=== PATIENT | male | born 1945 | race Caucasian/White ===

== ENCOUNTER 2018-01-27 16:23 | Inpatient (IN) | payer OTHER, MEDICARE ==
[~2018-01-27] VITALS: Ht 172.7 cm; Wt 48.2 kg
[2018-01-27 16:26] VITALS: BP 121/61; PULSE 122; RESP 17; TEMP 98.4; O2SAT 97
[2018-01-27] MEDS ORDERED: ADVA100A INH (16:43)
[2018-01-27] MEDS ORDERED: VENTAER INH (16:43)
[2018-01-27] MEDS ORDERED: ATEN50TA PO (16:52)
[2018-01-27] MEDS ORDERED: SIMV10TA PO (16:52)
[2018-01-27] MEDS ORDERED: SODIUM CHLOR 0.9% 1000 ML INJ 1,000 ML IV SCH (16:54)
[2018-01-27] MEDS ORDERED: SODIUM CHLORIDE 0.9% FLUSH 10 ML FLUSH IV FLUSH PRN ×2 (17:00→20:15)
--- NOTE | 2018-01-27 17:01 | PD ---
HPI Chief Complaint: GI Complaint Time Seen by Provider: 16:35 Travel History International Travel<30 days: No Contact w/Intl Traveler<30days: No Traveled to known affect area: No History of Present Illness HPI 72-year-old male with PMH of COPD presents to the ED for evaluation of a few weeks history of watery diarrhea. Onset a few days after the patient was discharged from the hospital and treated with a course of an unknown antibiotic. He denies fevers, chills, nausea, vomiting, abdominal pain. He states that he is mildly anorexic secondary to risk of fecal incontinence. He was seen at the [facility] today where there was concern for dehydration and elevated white count. He was sent to the ED for further evaluation. Patient lives full- time in [place], stays here over the winter. PFSH Past Medical History Cardiac Catheterization: Yes (w/ stent) High Cholesterol: Yes COPD: Yes Hypertension: Yes Myocardial Infarction: Yes (1999) Past Surgical History Appendectomy: Yes Social History Alcohol Use: Yes Tobacco Use: Yes Substance Use: Yes Allergies-Medications (Allergen,Severity, Reaction): Coded Allergies: No Known Allergies (Unverified , 01/27/18) Reported Meds & Prescriptions Reported Meds & Active Scripts Active Reported Simvastatin 10 Mg Tab 10 Mg PO DAILY Atenolol 50 Mg Tab 50 Mg PO DAILY Advair Diskus Inh (Fluticasone-Salmeterol Inh) 100-50 Mcg/Blist Aer 1 Puff INH BID Rinse mouth after use. Ventolin Hfa 18 GM Inh (Albuterol Sulfate) 90 Mcg/Act Aer 1 Puff INH Q4H PRN Review of Systems Except as stated in HPI: all other systems reviewed are Neg Physical Exam Narrative GENERAL: Well-nourished, well-developed patient. SKIN: Focused skin assessment warm/dry. HEAD: Normocephalic. Hearing aids in place bilaterally. EYES: No scleral icterus. No injection or drainage. NECK: Supple, trachea midline. No JVD or lymphadenopathy. CARDIOVASCULAR: Regular rate and rhythm without murmurs, gallops, or rubs. RESPIRATORY: Breath sounds equal bilaterally. No accessory muscle use. GASTROINTESTINAL: Abdomen soft, non-tender, nondistended. Active bowel sounds. MUSCULOSKELETAL: No cyanosis, or edema. BACK: Nontender without obvious deformity. No CVA tenderness. Data Data Last Documented VS Vital Signs Date Time Temp Pulse Resp B/P (MAP) Pulse Ox O2 Delivery O2 Flow Rate FiO2 01/27/18 18:12 101 16 101/56 (71) 97 Room Air 01/27/18 16:26 98.4 Orders Orders Complete Blood Count With Diff (01/27/18 16:54) Comprehensive Metabolic Panel (01/27/18 16:54) Prothrombin Time / Inr (Pt) (01/27/18 16:54) Act Partial Throm Time (Ptt) (01/27/18 16:54) Urinalysis - C+S If Indicated (01/27/18 16:54) Iv Access Insert/Monitor (01/27/18 16:54) Ecg Monitoring (01/27/18 16:54) Oximetry (01/27/18 16:54) Sodium Chlor 0.9% 1000 Ml Inj (Ns 1000 M (01/27/18 16:54) Sodium Chloride 0.9% Flush (Ns Flush) (01/27/18 17:00) Enteric Path (Stool) (01/27/18 16:54) Stool Ova And Parasite Screen (01/27/18 16:54) C Diff Toxin Pcr (01/27/18 16:54) Lactic Acid Sepsis Protocol (01/27/18 17:18) Metronidazole 500 Mg Inj (Flagyl 500 Mg (01/27/18 18:00) Blood Culture (01/27/18 17:51) Isolation 08,20 (01/27/18 17:53) Admit Order (Ed Use Only) (01/27/18 18:30) Labs Laboratory Tests Test 01/27/18 17:00 01/27/18 18:05 White Blood Count 19.5 TH/MM3 Red Blood Count 3.88 MIL/MM3 Hemoglobin 12.8 GM/DL Hematocrit 38.2 % Mean Corpuscular Volume 98.3 FL Mean Corpuscular Hemoglobin 33.0 PG Mean Corpuscular Hemoglobin Concent 33.5 % Red Cell Distribution Width 13.7 % Platelet Count 253 TH/MM3 Mean Platelet Volume 9.1 FL Neutrophils (%) (Auto) 88.2 % Lymphocytes (%) (Auto) 5.1 % Monocytes (%) (Auto) 5.2 % Eosinophils (%) (Auto) 1.3 % Basophils (%) (Auto) 0.2 % Neutrophils # (Auto) 17.2 TH/MM3 Lymphocytes # (Auto) 1.0 TH/MM3 Monocytes # (Auto) 1.0 TH/MM3 Eosinophils # (Auto) 0.2 TH/MM3 Basophils # (Auto) 0.0 TH/MM3 CBC Comment DIFF FINAL Differential Comment Prothrombin Time 11.9 SEC Prothromb Time International Ratio 1.2 RATIO Activated Partial Thromboplast Time 26.8 SEC Blood Urea Nitrogen 6 MG/DL Creatinine 0.75 MG/DL Random Glucose 98 MG/DL Total Protein 5.9 GM/DL Albumin 2.5 GM/DL Calcium Level 8.5 MG/DL Alkaline Phosphatase 74 U/L Aspartate Amino Transf (AST/SGOT) 10 U/L Alanine Aminotransferase (ALT/SGPT) 13 U/L Total Bilirubin 0.4 MG/DL Sodium Level 133 MEQ/L Potassium Level 3.7 MEQ/L Chloride Level 100 MEQ/L Carbon Dioxide Level 26.3 MEQ/L Anion Gap 7 MEQ/L Estimat Glomerular Filtration Rate 102 ML/MIN MDM Medical Decision Making Medical Screen Exam Complete: Yes Emergency Medical Condition: Yes Differential Diagnosis Infectious diarrhea versus dehydration versus metabolic derangement versus other Narrative Course 72-year-old male with PMH of COPD presents to the ED for evaluation of a few weeks history of watery diarrhea. Onset a few days after the patient was discharged from the hospital and treated with a course of an unknown antibiotic. He denies fevers, chills, nausea, vomiting, abdominal pain. The patient states that he was treated for perirectal abscess hospitalized at [facility]. He was discharged on unknown antibiotic. Patient's tachycardic, afebrile on presentation. Abdominal exam is unremarkable. IV was established. Patient was administered 1 L normal saline. CBC: WBC 19.5. Neutrophil predominant. Hemoglobin 12.8. INR 1.2. CMP: BUN 6, creatinine 0.75. Lactic acid 1.3. Stool studies ordered and pending. Given his leukocytosis will cover for C. difficile with Flagyl. I discussed the results of the workup with the patient as well as plan for admission. He is agreeable. Discussed the patient with Dr. Hussein who agrees to accept him to the medicine service. Please see medicine notes for disposition. Brie Gastelum January 27, 2018 17:01
[2018-01-27 17:30] LABS: AUTOMATED NEUTROPHIL # 17.2 TH/MM3 (1.8-7.7); BASOPHIL % 0.2 % (0.0-2.0); EOSINOPHIL # 0.2 TH/MM3 (0-0.4); EOSINOPHIL % 1.3 % (0.0-4.0); HEMATOCRIT 38.2 % (39.0-51.0); HEMOGLOBIN 12.8 GM/DL (13.0-17.0); LYMPH % 5.1 % (9.0-44.0); MEAN CELL VOLUME 98.3 FL (80.0-100.0); MEAN CORPUSCULAR HGB CONC 33.5 % (32.0-36.0); MEAN PLATELET VOLUME 9.1 FL (7.0-11.0); MONO % 5.2 % (0.0-8.0); NEUT % 88.2 % (16.0-70.0); PLATELET COUNT 253 TH/MM3 (150-450); RED BLOOD COUNT 3.88 MIL/MM3 (4.50-5.90); RED CELL DISTRIBUTION WIDTH 13.7 % (11.6-17.2); WHITE BLOOD COUNT 19.5 TH/MM3 (4.0-11.0)
[2018-01-27] MEDS ORDERED: metroNIDAZOLE 500 MG INJ 100 ML IV ONE (18:00)
[2018-01-27 18:12] VITALS: BP 101/56; PULSE 101; RESP 16; O2SAT 97
--- NOTE | 2018-01-27 18:33 | PD ---
Data Data Last Documented VS Vital Signs Date Time Temp Pulse Resp B/P (MAP) Pulse Ox O2 Delivery O2 Flow Rate FiO2 01/27/18 18:12 101 16 101/56 (71) 97 Room Air 01/27/18 16:26 98.4 Orders Orders Complete Blood Count With Diff (01/27/18 16:54) Comprehensive Metabolic Panel (01/27/18 16:54) Prothrombin Time / Inr (Pt) (01/27/18 16:54) Act Partial Throm Time (Ptt) (01/27/18 16:54) Urinalysis - C+S If Indicated (01/27/18 16:54) Iv Access Insert/Monitor (01/27/18 16:54) Ecg Monitoring (01/27/18 16:54) Oximetry (01/27/18 16:54) Sodium Chlor 0.9% 1000 Ml Inj (Ns 1000 M (01/27/18 16:54) Sodium Chloride 0.9% Flush (Ns Flush) (01/27/18 17:00) Enteric Path (Stool) (01/27/18 16:54) Stool Ova And Parasite Screen (01/27/18 16:54) C Diff Toxin Pcr (01/27/18 16:54) Lactic Acid Sepsis Protocol (01/27/18 17:18) Metronidazole 500 Mg Inj (Flagyl 500 Mg (01/27/18 18:00) Blood Culture (01/27/18 17:51) Isolation 08,20 (01/27/18 17:53) Admit Order (Ed Use Only) (01/27/18 18:30) Labs Laboratory Tests Test 01/27/18 17:00 01/27/18 18:05 White Blood Count 19.5 TH/MM3 Red Blood Count 3.88 MIL/MM3 Hemoglobin 12.8 GM/DL Hematocrit 38.2 % Mean Corpuscular Volume 98.3 FL Mean Corpuscular Hemoglobin 33.0 PG Mean Corpuscular Hemoglobin Concent 33.5 % Red Cell Distribution Width 13.7 % Platelet Count 253 TH/MM3 Mean Platelet Volume 9.1 FL Neutrophils (%) (Auto) 88.2 % Lymphocytes (%) (Auto) 5.1 % Monocytes (%) (Auto) 5.2 % Eosinophils (%) (Auto) 1.3 % Basophils (%) (Auto) 0.2 % Neutrophils # (Auto) 17.2 TH/MM3 Lymphocytes # (Auto) 1.0 TH/MM3 Monocytes # (Auto) 1.0 TH/MM3 Eosinophils # (Auto) 0.2 TH/MM3 Basophils # (Auto) 0.0 TH/MM3 CBC Comment DIFF FINAL Differential Comment MDM Supervised Visit with JONES: Yes Narrative Course The history, exam, and medical decision-making in the associated mid-level provider note were completed with my assistance. I reviewed and agree with the findings presented. I attest that I had a [id number] encounter with the patient on the same day, and personally performed and documented my assessment and findings in the medical record. *My assessment and Findings: 72-year-old man, generally well-appearing, little bit dehydrated. Heart rapid heart rate. Here from his primary physician for a week's worth of diarrhea whose stools and watery stools. Benign abdominal exam. Suspect C. difficile started shortly after an inpatient admission with antibiotic exposure. Will check labs, IV fluids, stool studies, admission. Given his high white count will get blood cultures, and empirically cover for C. difficile. Placed on contact isolation. Ross Lara MD January 27, 2018 18:33
[2018-01-27 18:39] LABS: ALBUMIN 2.5 GM/DL (3.4-5.0); ALT (GPT) 13 U/L (12-78); AST (GOT) 10 U/L (15-37); BICARBONATE 26.3 MEQ/L (21.0-32.0); BLOOD UREA NITROGEN 6 MG/DL (7-18); CALCIUM 8.5 MG/DL (8.5-10.1); CHLORIDE 100 MEQ/L (98-107); CREATININE 0.75 MG/DL (0.60-1.30); GLOMERULAR FILTRATION RATE 102 ML/MIN (>89); GLUCOSE,RANDOM 98 MG/DL (74-106); SODIUM (NA) 133 MEQ/L (136-145)
[2018-01-27 18:42] LABS: ALKALINE PHOSPHATASE 74 U/L (45-117); TOTAL BILIRUBIN ADULT 0.4 MG/DL (0.2-1.0); TOTAL PROTEIN 5.9 GM/DL (6.4-8.2)
[2018-01-27 18:49] LABS: INTERNATIONAL NORMALIZED RATIO 1.2 RATIO; PROTHROMBIN TIME - PATIENT 11.9 SEC (9.8-11.6)
[2018-01-27] MEDS ORDERED: SENNOSIDES 8.6 MG TAB PO PRN (20:15)
[2018-01-27] MEDS ORDERED: MAGNESIUM HYDROXIDE SUSP 30 ML CUP PO PRN (20:15)
[2018-01-27] MEDS ORDERED: LACTULOSE SYRUP 20 GM/30 ML CUP PO PRN (20:15)
[2018-01-27] MEDS ORDERED: NALOXONE HCL 0.4 MG/ML AMP IV PUSH PRN (20:15)
[2018-01-27] MEDS ORDERED: ACETAMINOPHEN 325 MG TAB PO PRN (20:15)
[2018-01-27] MEDS ORDERED: ONDANSETRON HCL 4 MG/2 ML VIAL IVP PRN (20:15)
[2018-01-27] MEDS ORDERED: BISACODYL 10 MG SUPP RECTAL PRN (20:15)
[2018-01-27] MEDS ORDERED: RESP: ALBUTEROL 2.5 MG/IPRATROPIUM 0.5 MG NEB (PRN) NEB (20:15)
--- NOTE | 2018-01-27 20:20 | HHI.HP ---
HPI Service [facility] Primary Care Physician [facility] Admission Diagnosis Leukocytosis, rule out infectious diarrhea Diagnoses: Travel History International Travel<30 Days: No Contact w/Intl Traveler <30 Da: No Traveled to Known Affected Are: No History of Present Illness 72-year-old male with a past medical history significant for coronary artery disease, COPD, hypertension and hyperlipidemia presents to the emergency department for the evaluation of diarrhea. On 01/02/18 the patient was treated at [facility] for a perirectal abscess that spontaneously ruptured shortly after admission. The patient was treated with IV antibiotics and remained in the hospital for 4 days. On hospital day #3 the patient was treated with an I&D. He was discharged home on approximately 10 days worth of oral antibiotic. (The patient and his cannot remember the name of any of the antibiotics). For the past 2 weeks, the patient has had severe, copious, watery diarrhea. He reports that is approximately 2-6 times daily despite aggressive treatment with Imodium. He denies any fever/chills. No abdominal pain/cramping. No nausea/vomiting. No chest pain or shortness of breath. No fatigue or weakness. No lateralizing signs/symptoms. Review of Systems Except as stated in HPI: all other systems reviewed are Neg Past Family Social History Past Medical History CAD COPD Hypertension Hyperlipidemia Past Surgical History I&D perirectal abscess on 01/05/18 Cardiac catheterization with stent placement 1 Appendectomy Right cataract surgery Reported Medications Reported Meds & Active Scripts Active Reported Simvastatin 10 Mg Tab 10 Mg PO DAILY Atenolol 50 Mg Tab 50 Mg PO DAILY Advair Diskus Inh (Fluticasone-Salmeterol Inh) 100-50 Mcg/Blist Aer 1 Puff INH BID Rinse mouth after use. Ventolin Hfa 18 GM Inh (Albuterol Sulfate) 90 Mcg/Act Aer 1 Puff INH Q4H PRN Allergies: Coded Allergies: No Known Allergies (Unverified , 01/27/18) Family History Negative for CAD/DM Social History Smokes approximately half a pack per day. Occasional alcohol. Denies illicit drugs. Physical Exam Vital Signs Vital Signs Date Time Temp Pulse Resp B/P (MAP) Pulse Ox O2 Delivery O2 Flow Rate FiO2 01/27/18 19:34 01/27/18 18:12 101 16 101/56 (71) 97 Room Air 01/27/18 16:26 98.4 122 17 121/61 (81) 97 Physical Exam GENERAL: This is a well-nourished, well-developed patient, in no apparent distress. SKIN: No rashes, ecchymoses or lesions. Cool and dry. No signs of infection. HEAD: Atraumatic. Normocephalic. No temporal or scalp tenderness. EYES: Pupils equal round and reactive. Extraocular motions intact. No scleral icterus. No injection or drainage. ENT: Nose without bleeding, purulent drainage or septal hematoma. Throat without erythema, tonsillar hypertrophy or exudate. Uvula midline. Airway patent. NECK: Trachea midline. No JVD or lymphadenopathy. Supple, nontender, no meningeal signs. CARDIOVASCULAR: Regular rate and rhythm without murmurs, gallops, or rubs. RESPIRATORY: Clear to auscultation. Breath sounds equal bilaterally. No wheezes , rales, or rhonchi. GASTROINTESTINAL: Abdomen soft, non-tender, nondistended. No hepato-splenomegaly , or palpable masses. No guarding. MUSCULOSKELETAL: Extremities without clubbing, cyanosis, or edema. No joint tenderness, effusion, or edema noted. No calf tenderness. NEUROLOGICAL: Awake and alert. Cranial nerves II through XII intact. Motor and sensory grossly within normal limits. Normal speech. Laboratory Laboratory Tests Test 01/27/18 17:00 01/27/18 18:05 01/27/18 18:49 White Blood Count 19.5 Red Blood Count 3.88 Hemoglobin 12.8 Hematocrit 38.2 Mean Corpuscular Volume 98.3 Mean Corpuscular Hemoglobin 33.0 Mean Corpuscular Hemoglobin Concent 33.5 Red Cell Distribution Width 13.7 Platelet Count 253 Mean Platelet Volume 9.1 Neutrophils (%) (Auto) 88.2 Lymphocytes (%) (Auto) 5.1 Monocytes (%) (Auto) 5.2 Eosinophils (%) (Auto) 1.3 Basophils (%) (Auto) 0.2 Neutrophils # (Auto) 17.2 Lymphocytes # (Auto) 1.0 Monocytes # (Auto) 1.0 Eosinophils # (Auto) 0.2 Basophils # (Auto) 0.0 CBC Comment DIFF FINAL Differential Comment Prothrombin Time 11.9 Prothromb Time International Ratio 1.2 Activated Partial Thromboplast Time 26.8 Blood Urea Nitrogen 6 Creatinine 0.75 Random Glucose 98 Total Protein 5.9 Albumin 2.5 Calcium Level 8.5 Alkaline Phosphatase 74 Aspartate Amino Transf (AST/SGOT) 10 Alanine Aminotransferase (ALT/SGPT) 13 Total Bilirubin 0.4 Sodium Level 133 Potassium Level 3.7 Chloride Level 100 Carbon Dioxide Level 26.3 Anion Gap 7 Estimat Glomerular Filtration Rate 102 Lactic Acid Level 1.3 Date/Time Source Procedure Growth Status 01/27/18 18:10 Blood Peripheral Aerobic Blood Culture Pending Received 01/27/18 18:10 Blood Peripheral Anaerobic Blood Culture Pending Received Result Diagram: 01/27/18 1700 01/27/18 1805 Caprini VTE Risk Assessment Andreyrini VTE Risk Assessment: Mod/High Risk (score >= 2) Caprini Risk Assessment Model Point Value = 1 Point Value = 2 Point Value = 3 Point Value = 5 Age 41-60 Minor surgery BMI > 25 kg/m2 Swollen legs Varicose veins or History of unexplained or recurrent spontaneous Oral contraceptives or hormone replacement Sepsis (< 1 month) Serious lung disease, including pneumonia (< 1 month) Abnormal pulmonary function Acute myocardial infarction Congestive heart failure (< 1 month) History of inflammatory bowel disease Medical patient at bed rest Age 61-74 Arthroscopic surgery Major open surgery (> 45 min) Laparoscopic surgery (> 45 min) Malignancy Confined to bed (> 72 hours) Immobilizing plaster cast Central venous access Age >= 75 History of VTE Family history of VTE Factor V Leiden Prothrombin [id number] Lupus anticoagulant Anticardiolipin antibodies Elevated serum homocysteine Heparin-induced thrombocytopenia Other congenital or acquired thrombophilia Stroke (< 1 month) Elective arthroplasty Hip, pelvis, or leg fracture Acute spinal cord injury (< 1 month) Prophylaxis Regimen Total Risk Factor Score Risk Level Prophylaxis Regimen 0-1 Low Early ambulation 2 Moderate Order ONE of the following: *Sequential Compression Device (SCD) *Heparin 5000 units SQ BID 3-4 Higher Order ONE of the following medications: *Heparin 5000 units SQ TID *Enoxaparin/Lovenox 40 mg SQ daily (WT < 150 kg, CrCl > 30 mL/min) *Enoxaparin/Lovenox 30 mg SQ daily (WT < 150 kg, CrCl > 10-29 mL/min) *Enoxaparin/Lovenox 30 mg SQ BID (WT < 150 kg, CrCl > 30 mL/min) AND/OR *Sequential Compression Device (SCD) 5 or more Highest Order ONE of the following medications: *Heparin 5000 units SQ TID (Preferred with Epidurals) *Enoxaparin/Lovenox 40 mg SQ daily (WT < 150 kg, CrCl > 30 mL/min) *Enoxaparin/Lovenox 30 mg SQ daily (WT < 150 kg, CrCl > 10-29 mL/min) *Enoxaparin/Lovenox 30 mg SQ BID (WT < 150 kg, CrCl > 30 mL/min) AND *Sequential Compression Device (SCD) Assessment and Plan Assessment and Plan Assessment/plan: 1. Diarrhea/?C. difficile/Sepsis Leukocytosis and tachycardia Patient with recent antibiotic history and water diarrhea 2 weeks Stool studies pending C. difficile pending Blood cultures pending CXR, UA pending Empiric treatment with Flagyl 2. Recent history of perirectal abscess No active signs of infection Continue outpatient care at the [facility] 3. Hypertension/hyperlipidemia/CAD Continue home medication 4. COPD Continue home medications Duo nebs as needed FEN Heart healthy diet Electrolytes: monitor and replete prn Heparin Physician Certification 2 Midnight Certification Type: Admission for Inpatient Services Order for Inpatient Services The services are ordered in accordance with Medicare regulations or non- Medicare payer requirements, as applicable. In the case of services not specified as inpatient-only, they are appropriately provided as inpatient services in accordance with the 2-midnight benchmark. Estimated LOS (days): 2 2 days is the estimated time the patient will need to remain in the hospital, assuming treatment plan goals are met and no additional complications. Post-Hospital Plan: Not yet determined Carole Hoffman MD January 27, 2018 20:20
[2018-01-27] MEDS: DOCUSATE SODIUM 50 MG/SENNA 8.6 MG TAB PO SCH (20:45)
[2018-01-27] MEDS: SODIUM CHLORIDE 0.9% FLUSH 10 ML FLUSH IV FLUSH SCH (20:45)
[2018-01-27] MEDS: HEPARIN SODIUM - SQ 10,000 UNITS/ML VIAL SQ SCH (20:46)
--- NOTE | 2018-01-27 20:50 | RADRPT ---
EXAM DATE/TIME: 01/27/2018 20:32 [facility] COMPARISON: No previous studies available for comparison. INDICATIONS : Short of breath. MEDICAL HISTORY : None. SURGICAL HISTORY : None. ENCOUNTER: Initial ACUITY: 1 day PAIN SCORE: 0/10 LOCATION: Bilateral chest FINDINGS: A single view of the chest demonstrates the lungs to be symmetrically aerated without evidence of mas s, infiltrate or effusion. There is some mild septal thickening and interstitial prominence at the l arben bases. The cardiomediastinal contours are unremarkable. Osseous structures are intact. CONCLUSION: Septal thickening at the lung bases. Questionable minimal interstitial edema. Leonard Singh MD on January 27, 2018 at 20:46 Board Certified Radiologist. This report was verified electronically.
[2018-01-27 21:30] VITALS: BP 89/51; PULSE 122; RESP 18; TEMP 98.6; O2SAT 94
[2018-01-27 21:38] LABS: BILIRUBIN, URINE NEG (NEG); BLOOD, URINE NEG (NEG); GLUCOSE,URINE NEG (NEG); HYALINE CAST, URINE 3 /lpf (RARE); KETONE, URINE 10 mg/dL (NEG); MUCUS URINE MANY /lpf (OCC); NITRITE,URINE NEG (NEG); PH, URINE 5.5 (5.0-8.5); URINE COLOR YELLOW (YELLW/STRAW); URINE LEUKOCYTE ESTERASE TRACE (NEG)
[2018-01-27] MEDS: BUDESONIDE-FORMOTEROL 80/4.5 MCG INHALER INH SCH (23:47)
[2018-01-28] VITALS (7 sets, daily range): BP systolic 92–107; BP diastolic 50–55; PULSE 85–91; RESP 16–20; TEMP 98.2–99; O2SAT 92–95
[2018-01-28] MEDS: metroNIDAZOLE 500 MG TAB PO SCH ×2 (02:20→09:36)
[2018-01-28 05:33] LABS: AUTOMATED NEUTROPHIL # 11.6 TH/MM3 (1.8-7.7); BASOPHIL # 0.1 TH/MM3 (0-0.2); BASOPHIL % 0.4 % (0.0-2.0); EOSINOPHIL # 0.4 TH/MM3 (0-0.4); EOSINOPHIL % 2.8 % (0.0-4.0); HEMATOCRIT 34.6 % (39.0-51.0); HEMOGLOBIN 11.8 GM/DL (13.0-17.0); LYMPHOCYTE # 1.3 TH/MM3 (1.0-4.8); MEAN CELL VOLUME 97.4 FL (80.0-100.0); MEAN CORPUSCULAR HEMOGLOBIN 33.2 PG (27.0-34.0); MEAN CORPUSCULAR HGB CONC 34.1 % (32.0-36.0); MEAN PLATELET VOLUME 9.1 FL (7.0-11.0); MONO % 8.4 % (0.0-8.0); MONOCYTE # 1.2 TH/MM3 (0-0.9); NEUT % 79.4 % (16.0-70.0); PLATELET COUNT 234 TH/MM3 (150-450); RED BLOOD COUNT 3.55 MIL/MM3 (4.50-5.90); RED CELL DISTRIBUTION WIDTH 14.1 % (11.6-17.2); WHITE BLOOD COUNT 14.6 TH/MM3 (4.0-11.0)
[2018-01-28 05:51] LABS: BICARBONATE 24.6 MEQ/L (21.0-32.0); CREATININE 0.73 MG/DL (0.60-1.30)
[2018-01-28] MEDS: ATENOLOL 50 MG TAB PO SCH (09:00)
[2018-01-28] MEDS: DOCUSATE SODIUM 50 MG/SENNA 8.6 MG TAB PO SCH ×2 (09:00→21:00)
[2018-01-28] MEDS: BUDESONIDE-FORMOTEROL 80/4.5 MCG INHALER INH SCH ×2 (09:35→21:14)
[2018-01-28] MEDS: PRAVASTATIN SOD 20 MG TAB PO SCH (09:36)
[2018-01-28] MEDS: HEPARIN SODIUM - SQ 10,000 UNITS/ML VIAL SQ SCH ×2 (09:37→21:18)
[2018-01-28] MEDS: SODIUM CHLORIDE 0.9% FLUSH 10 ML FLUSH IV FLUSH SCH ×2 (09:38→21:15)
--- NOTE | 2018-01-28 15:32 | HHI.PR ---
Subjective Remarks Diarrhea is still present but improving. No fevers overnight. No new complaints from the patient. Objective Vital Signs Date Time Temp Pulse Resp B/P (MAP) Pulse Ox O2 Delivery O2 Flow Rate FiO2 01/28/18 12:06 99.0 88 20 96/52 (67) 95 01/28/18 08:24 98.3 85 18 97/54 (68) 93 01/28/18 04:11 99.0 86 18 92/55 (67) 92 01/28/18 04:00 98.2 89 18 107/55 (72) 94 01/28/18 00:00 98.6 87 17 93/55 (68) 95 01/27/18 21:30 98.6 122 18 89/51 (64) 94 01/27/18 19:34 01/27/18 18:12 101 16 101/56 (71) 97 Room Air 01/27/18 16:26 98.4 122 17 121/61 (81) 97 I/O 01/27/18 01/27/18 01/27/18 01/28/18 01/28/18 01/28/18 07:00 15:00 23:00 07:00 15:00 23:00 # Voids 3 # Bowel Movements 3 Result Diagram: 01/28/18 0428 01/28/18 0428 Objective Remarks GENERAL: NAD, A&Ox3 HEAD: Normocephalic. NECK: Supple, trachea midline. No lymphadenopathy. EYES: No scleral icterus. No injection or drainage. CARDIOVASCULAR: Regular rate and rhythm without murmurs, gallops, or rubs. RESPIRATORY: Breath sounds equal bilaterally. No accessory muscle use. GASTROINTESTINAL: Abdomen soft, non-tender, nondistended. MUSCULOSKELETAL: No cyanosis, or edema. SKIN: Warm and dry. NEURO: No focal neurological deficitis. A/P Problem List: (1) C. difficile colitis ICD Code: A04.72 - Enterocolitis due to Clostridium difficile, not specified as recurrent Assessment and Plan 72-year-old male admitted secondary to C. difficile colitis with sepsis Sepsis Resolved C. difficile colitis Transition to p.o. vancomycin Monitor for improvement in diarrhea history of perirectal abscess No active signs of infection Continue outpatient care at the [facility] Hypertension/hyperlipidemia/CAD Continue home medication COPD Continue home medications Duo nebs as needed DVT prophylaxis Heparin Owen Montez MD January 28, 2018 15:32
[2018-01-28] MEDS: VANCOMYCIN 500 MG VIAL (FOR ORAL USE ONLY) PO SCH ×2 (18:00→21:15)
[2018-01-28] MEDS: LACTOBACILLUS ACIDOPHILUS TAB PO SCH (18:00)
[2018-01-29] VITALS (7 sets, daily range): BP systolic 93–118; BP diastolic 52–63; PULSE 70–98; RESP 16–18; TEMP 97.6–98.5; O2SAT 93–95
[2018-01-29] MEDS: VANCOMYCIN 500 MG VIAL (FOR ORAL USE ONLY) PO SCH ×4 (08:19→20:21)
[2018-01-29] MEDS: ATENOLOL 50 MG TAB PO SCH (08:20)
[2018-01-29] MEDS: PRAVASTATIN SOD 20 MG TAB PO SCH (08:20)
[2018-01-29] MEDS: HEPARIN SODIUM - SQ 10,000 UNITS/ML VIAL SQ SCH ×2 (08:20→20:22)
[2018-01-29] MEDS: DOCUSATE SODIUM 50 MG/SENNA 8.6 MG TAB PO SCH ×2 (08:20→20:24)
[2018-01-29] MEDS: LACTOBACILLUS ACIDOPHILUS TAB PO SCH ×3 (08:20→18:29)
[2018-01-29] MEDS: SODIUM CHLORIDE 0.9% FLUSH 10 ML FLUSH IV FLUSH SCH ×2 (08:20→20:23)
[2018-01-29] MEDS: BUDESONIDE-FORMOTEROL 80/4.5 MCG INHALER INH SCH ×2 (08:22→20:23)
[2018-01-29 09:49] LABS: AUTOMATED NEUTROPHIL # 8.9 TH/MM3 (1.8-7.7); BASOPHIL # 0.1 TH/MM3 (0-0.2); BASOPHIL % 0.5 % (0.0-2.0); EOSINOPHIL # 0.3 TH/MM3 (0-0.4); EOSINOPHIL % 2.5 % (0.0-4.0); HEMATOCRIT 34.6 % (39.0-51.0); HEMOGLOBIN 11.7 GM/DL (13.0-17.0); LYMPH % 8.9 % (9.0-44.0); MEAN CELL VOLUME 97.4 FL (80.0-100.0); MEAN CORPUSCULAR HEMOGLOBIN 32.9 PG (27.0-34.0); MEAN CORPUSCULAR HGB CONC 33.8 % (32.0-36.0); MEAN PLATELET VOLUME 9.2 FL (7.0-11.0); MONO % 6.8 % (0.0-8.0); MONOCYTE # 0.8 TH/MM3 (0-0.9); NEUT % 81.3 % (16.0-70.0); PLATELET COUNT 253 TH/MM3 (150-450); RED BLOOD COUNT 3.55 MIL/MM3 (4.50-5.90); RED CELL DISTRIBUTION WIDTH 13.8 % (11.6-17.2)
[2018-01-29 10:13] LABS: ALBUMIN 2.2 GM/DL (3.4-5.0); AST (GOT) 12 U/L (15-37); BICARBONATE 24.8 MEQ/L (21.0-32.0); BLOOD UREA NITROGEN 6 MG/DL (7-18); CALCIUM 8.1 MG/DL (8.5-10.1); CHLORIDE 102 MEQ/L (98-107); CREATININE 0.64 MG/DL (0.60-1.30); GLOMERULAR FILTRATION RATE 123 ML/MIN (>89); GLUCOSE,RANDOM 88 MG/DL (74-106); SODIUM (NA) 137 MEQ/L (136-145)
[2018-01-29 10:15] LABS: ALT (GPT) 11 U/L (12-78)
[2018-01-29 10:17] LABS: ALKALINE PHOSPHATASE 62 U/L (45-117); TOTAL BILIRUBIN ADULT 0.3 MG/DL (0.2-1.0); TOTAL PROTEIN 5.3 GM/DL (6.4-8.2)
[2018-01-29] MEDS ORDERED: POTASSIUM CHLORIDE 10 MEQ CONTROLLED RELEASE TAB PO ONE (12:00)
--- NOTE | 2018-01-29 12:02 | HHI.PR ---
Subjective Remarks Watery diarrhea still present. No fevers. No new complaints from the patient. He is ambulatory. Objective Vital Signs Date Time Temp Pulse Resp B/P (MAP) Pulse Ox O2 Delivery O2 Flow Rate FiO2 01/29/18 08:00 97.8 98 16 112/63 (79) 94 01/29/18 04:34 97.6 80 16 118/61 (80) 95 01/29/18 00:06 98.1 82 18 111/59 (76) 93 01/28/18 21:08 98.3 91 16 94/50 (65) 93 01/28/18 16:15 98.7 89 20 92/52 (65) 95 01/28/18 12:06 99.0 88 20 96/52 (67) 95 I/O 01/28/18 01/28/18 01/28/18 01/29/18 01/29/18 01/29/18 07:00 15:00 23:00 07:00 15:00 23:00 # Voids 3 3 # Bowel Movements 3 1 Result Diagram: 01/29/18 0744 01/29/18 0744 Objective Remarks GENERAL: NAD, A&Ox3 HEAD: Normocephalic. NECK: Supple, trachea midline. No lymphadenopathy. EYES: No scleral icterus. No injection or drainage. CARDIOVASCULAR: Regular rate and rhythm without murmurs, gallops, or rubs. RESPIRATORY: Breath sounds equal bilaterally. No accessory muscle use. GASTROINTESTINAL: Abdomen soft, non-tender, nondistended. MUSCULOSKELETAL: No cyanosis, or edema. SKIN: Warm and dry. NEURO: No focal neurological deficitis. A/P Problem List: (1) C. difficile colitis ICD Code: A04.72 - Enterocolitis due to Clostridium difficile, not specified as recurrent Assessment and Plan 72-year-old male admitted secondary to C. difficile colitis with sepsis No significant improvement yet. Continue to monitor for improvement in diarrhea prior to discharge. Sepsis Resolved C. difficile colitis Transition to p.o. vancomycin Monitor for improvement in diarrhea history of perirectal abscess No active signs of infection Continue outpatient care at the [facility] Hypertension/hyperlipidemia/CAD Continue home medication COPD Continue home medications Duo nebs as needed DVT prophylaxis Heparin Owen Montez MD January 29, 2018 12:02
[2018-01-30 04:00] VITALS: BP 96/55; PULSE 74; RESP 18; TEMP 98.5; O2SAT 95
[2018-01-30 06:28] LABS: BASOPHIL # 0.1 TH/MM3 (0-0.2); BASOPHIL % 0.7 % (0.0-2.0); EOSINOPHIL # 0.4 TH/MM3 (0-0.4); HEMATOCRIT 33.3 % (39.0-51.0); HEMOGLOBIN 11.3 GM/DL (13.0-17.0); LYMPH % 16.2 % (9.0-44.0); LYMPHOCYTE # 1.2 TH/MM3 (1.0-4.8); MEAN CELL VOLUME 97.7 FL (80.0-100.0); MEAN CORPUSCULAR HEMOGLOBIN 33.2 PG (27.0-34.0); MEAN PLATELET VOLUME 8.8 FL (7.0-11.0); MONO % 11.9 % (0.0-8.0); MONOCYTE # 0.9 TH/MM3 (0-0.9); NEUT % 66.2 % (16.0-70.0); PLATELET COUNT 266 TH/MM3 (150-450); RED BLOOD COUNT 3.41 MIL/MM3 (4.50-5.90); WHITE BLOOD COUNT 7.5 TH/MM3 (4.0-11.0)
[2018-01-30 06:54] LABS: ALBUMIN 2.2 GM/DL (3.4-5.0); AST (GOT) 11 U/L (15-37); BICARBONATE 24.4 MEQ/L (21.0-32.0); BLOOD UREA NITROGEN 7 MG/DL (7-18); CALCIUM 8.1 MG/DL (8.5-10.1); CHLORIDE 105 MEQ/L (98-107); CREATININE 0.65 MG/DL (0.60-1.30); GLOMERULAR FILTRATION RATE 120 ML/MIN (>89); GLUCOSE,RANDOM 96 MG/DL (74-106); SODIUM (NA) 140 MEQ/L (136-145)
[2018-01-30 06:55] LABS: ALT (GPT) 12 U/L (12-78)
[2018-01-30 06:58] LABS: ALKALINE PHOSPHATASE 55 U/L (45-117); TOTAL BILIRUBIN ADULT 0.2 MG/DL (0.2-1.0); TOTAL PROTEIN 5.2 GM/DL (6.4-8.2)
[2018-01-30 08:00] VITALS: BP 98/57; PULSE 73; RESP 20; TEMP 98.3; O2SAT 94
[2018-01-30] MEDS: DOCUSATE SODIUM 50 MG/SENNA 8.6 MG TAB PO SCH ×2 (08:46→21:00)
[2018-01-30] MEDS: LACTOBACILLUS ACIDOPHILUS TAB PO SCH ×3 (08:46→17:50)
[2018-01-30] MEDS: PRAVASTATIN SOD 20 MG TAB PO SCH (08:46)
[2018-01-30] MEDS: VANCOMYCIN 500 MG VIAL (FOR ORAL USE ONLY) PO SCH ×4 (08:46→22:08)
[2018-01-30] MEDS: ATENOLOL 50 MG TAB PO SCH (08:46)
[2018-01-30] MEDS: HEPARIN SODIUM - SQ 10,000 UNITS/ML VIAL SQ SCH ×2 (08:46→22:08)
[2018-01-30] MEDS: BUDESONIDE-FORMOTEROL 80/4.5 MCG INHALER INH SCH ×2 (08:47→22:09)
[2018-01-30] MEDS: SODIUM CHLORIDE 0.9% FLUSH 10 ML FLUSH IV FLUSH SCH ×2 (08:47→22:09)
[2018-01-30 12:00] VITALS: BP_SYST 93; BP_SYST 97; BP_DIAS 50; BP_DIAS 56; PULSE 68; PULSE 71; RESP 18; RESP 20; TEMP 97.2; TEMP 98.1; O2SAT 96; O2SAT 97
--- NOTE | 2018-01-30 17:30 | HHI.PR ---
Subjective Remarks Slight improvement in diarrhea. The patient did have an accident still in soiled his bed. He lives in close quarters with his and she is at risk for daren infection if the patient is not able to control his bowels. Objective Vital Signs Date Time Temp Pulse Resp B/P (MAP) Pulse Ox O2 Delivery O2 Flow Rate FiO2 01/30/18 12:00 97.2 71 20 97/56 (70) 96 01/30/18 12:00 98.1 68 18 93/50 (64) 97 01/30/18 08:00 98.3 73 20 98/57 (71) 94 01/30/18 04:00 98.5 74 18 96/55 (69) 95 01/29/18 23:00 98.5 77 18 97/52 (67) 95 01/29/18 20:00 98.0 76 18 97/55 (69) 94 I/O 01/29/18 01/29/18 01/29/18 01/30/18 01/30/18 01/30/18 07:00 15:00 23:00 07:00 15:00 23:00 # Voids 3 3 5 # Bowel Movements 1 1 3 Result Diagram: 01/30/18 0540 01/30/18 0540 Objective Remarks GENERAL: NAD, A&Ox3 HEAD: Normocephalic. NECK: Supple, trachea midline. No lymphadenopathy. EYES: No scleral icterus. No injection or drainage. CARDIOVASCULAR: Regular rate and rhythm without murmurs, gallops, or rubs. RESPIRATORY: Breath sounds equal bilaterally. No accessory muscle use. GASTROINTESTINAL: Abdomen soft, non-tender, nondistended. MUSCULOSKELETAL: No cyanosis, or edema. SKIN: Warm and dry. NEURO: No focal neurological deficitis. A/P Problem List: (1) C. difficile colitis ICD Code: A04.72 - Enterocolitis due to Clostridium difficile, not specified as recurrent Assessment and Plan 72-year-old male admitted secondary to C. difficile colitis with sepsis Further improvement needed prior to discharge. Sepsis Resolved C. difficile colitis Transition to p.o. vancomycin Monitor for improvement in diarrhea history of perirectal abscess No active signs of infection Continue outpatient care at the [facility] Hypertension/hyperlipidemia/CAD Continue home medication COPD Continue home medications Duo nebs as needed DVT prophylaxis Heparin Owen Montez MD January 30, 2018 17:30
[2018-01-30 20:00] VITALS: BP 105/57; PULSE 69; RESP 18; TEMP 98; O2SAT 95
[2018-01-31] VITALS: BP 108/55; PULSE 69; RESP 18; TEMP 97.9; O2SAT 94
[2018-01-31 04:00] VITALS: BP 98/54; PULSE 79; RESP 18; TEMP 98.1; O2SAT 95
[2018-01-31 08:00] VITALS: BP 126/57; PULSE 69; RESP 18; TEMP 98.8; O2SAT 96
[2018-01-31] MEDS: VANCOMYCIN 500 MG VIAL (FOR ORAL USE ONLY) PO SCH ×2 (09:00→13:43)
[2018-01-31] MEDS: LACTOBACILLUS ACIDOPHILUS TAB PO SCH ×2 (09:01→13:43)
[2018-01-31] MEDS: ATENOLOL 50 MG TAB PO SCH (09:01)
[2018-01-31] MEDS: DOCUSATE SODIUM 50 MG/SENNA 8.6 MG TAB PO SCH (09:01)
[2018-01-31] MEDS: PRAVASTATIN SOD 20 MG TAB PO SCH (09:02)
[2018-01-31] MEDS: HEPARIN SODIUM - SQ 10,000 UNITS/ML VIAL SQ SCH (09:02)
[2018-01-31] MEDS: BUDESONIDE-FORMOTEROL 80/4.5 MCG INHALER INH SCH (09:03)
[2018-01-31] MEDS: SODIUM CHLORIDE 0.9% FLUSH 10 ML FLUSH IV FLUSH SCH (09:03)
[2018-01-31] MEDS ORDERED: VANC125C3 PO (11:50)
[2018-01-31] MEDS ORDERED: LACT PO (11:50)
--- NOTE | 2018-01-31 11:53 | HHI.DS ---
Discharge Summary Admission Date January 27, 2018 at 18:32 Discharge Date: January 31, 2018 Admitting Diagnosis Leukocytosis, rule out infectious diarrhea (1) C. difficile colitis ICD Code: A04.72 - Enterocolitis due to Clostridium difficile, not specified as recurrent Procedures None Brief History - From Admission 72-year-old male with a past medical history significant for coronary artery disease, COPD, hypertension and hyperlipidemia presents to the emergency department for the evaluation of diarrhea. On 01/02/18 the patient was treated at [facility] for a perirectal abscess that spontaneously ruptured shortly after admission. The patient was treated with IV antibiotics and remained in the hospital for 4 days. On hospital day #3 the patient was treated with an I&D. He was discharged home on approximately 10 days worth of oral antibiotic. (The patient and his cannot remember the name of any of the antibiotics). For the past 2 weeks, the patient has had severe, copious, watery diarrhea. He reports that is approximately 2-6 times daily despite aggressive treatment with Imodium. He denies any fever/chills. No abdominal pain/cramping. No nausea/vomiting. No chest pain or shortness of breath. No fatigue or weakness. No lateralizing signs/symptoms. CBC/BMP: 01/30/18 0540 01/30/18 0540 Significant Findings Laboratory Tests Test 01/29/18 07:44 01/30/18 05:40 Red Blood Count 3.55 MIL/MM3 (4.50-5.90) 3.41 MIL/MM3 (4.50-5.90) Hemoglobin 11.7 GM/DL (13.0-17.0) 11.3 GM/DL (13.0-17.0) Hematocrit 34.6 % (39.0-51.0) 33.3 % (39.0-51.0) Neutrophils (%) (Auto) 81.3 % (16.0-70.0) Lymphocytes (%) (Auto) 8.9 % (9.0-44.0) Neutrophils # (Auto) 8.9 TH/MM3 (1.8-7.7) Blood Urea Nitrogen 6 MG/DL (7-18) Total Protein 5.3 GM/DL (6.4-8.2) 5.2 GM/DL (6.4-8.2) Albumin 2.2 GM/DL (3.4-5.0) 2.2 GM/DL (3.4-5.0) Calcium Level 8.1 MG/DL (8.5-10.1) 8.1 MG/DL (8.5-10.1) Aspartate Amino Transf (AST/SGOT) 12 U/L (15-37) 11 U/L (15-37) Alanine Aminotransferase (ALT/SGPT) 11 U/L (12-78) Potassium Level 3.1 MEQ/L (3.5-5.1) Monocytes (%) (Auto) 11.9 % (0.0-8.0) Eosinophils (%) (Auto) 5.0 % (0.0-4.0) Hospital Course Mr. Garrett is a 72-year-old male. He was admitted secondary to diarrhea which was discovered to be related to C. difficile colitis. He has no previous history of C. difficile colitis. He has been treated with oral vancomycin 500 mg p.o. every 6 hours while here. Through time he has had a gradual improvement in his bowel movements. Movements are now solid enough for safe discharge. He will be continued on vancomycin for 10 more days at time of discharge. Probiotics will continue for 20 more days. Pt Condition on Discharge: Stable Discharge Disposition: Discharge Home Discharge Time: <= 30 minutes Discharge Instructions DIET: Follow Instructions for: As Tolerated, No Restrictions Activities you can perform: Regular-No Restrictions Follow up Referrals: PCP Follow-up - 2 Weeks New Medications: Vancomycin (Vancomycin) 125 Mg Cap 125 MG PO QID for Infection, #40 CAP 0 Refills Lactobacillus Acidophilus (Acidophilus/l-Sporogenes) 35 Million Cell-25 Million Cell Tab 1 TAB PO TID for Probiotic, #60 TAB Continued Medications: Albuterol 18 GM Inh (Ventolin Hfa 18 GM Inh) 90 Mcg/Act Aer 1 PUFF INH Q4H PRN for SHORTNESS OF BREATH, #1 INHALER 0 Refills Atenolol (Atenolol) 50 Mg Tab 50 MG PO DAILY for Blood Pressure Management, #30 TAB 0 Refills Fluticasone-Salmeterol Inh (Advair Diskus Inh) 100-50 Mcg/Blist Aer 1 PUFF INH BID for Asthma Management, #1 INHALER 0 Refills Rinse mouth after use. Simvastatin (Simvastatin) 10 Mg Tab 10 MG PO DAILY for Cholesterol Management, #30 TAB 0 Refills Owen Montez MD January 31, 2018 11:53
[2018-01-31 12:00] VITALS: BP 113/60; PULSE 65; RESP 18; TEMP 98.9; O2SAT 98
== END 2018-01-31 15:01 | disposition home or self-care (01) | DRG 373 ==
LOC: NEPE 16:23 → NEDA 18:32 → N05B 19:46
PROVIDERS: ADMIT Hospitalist; ATTEND Hospitalist
DX: A04.72 Enterocolitis due to Clostridium difficile, not specified as recurrent (principal); J44.9 Chronic obstructive pulmonary disease, unspecified; I25.10 Atherosclerotic heart disease of native coronary artery without angina pectoris; D72.829 Elevated white blood cell count, unspecified; E78.5 Hyperlipidemia, unspecified; I10 Essential (primary) hypertension; Z95.5 Presence of coronary angioplasty implant and graft; Z79.51 Long term (current) use of inhaled steroids; Z79.899 Other long term (current) drug therapy
CPT/HCPCS: 71045; 80048; 80053; 81001; 83605; 85025; 85610; 85730; 87040; 87077; 87186; 87205; 87328; 87329; 87493; 87506; 96361; 96374; J1644; J7030